=== PATIENT | female | born 1965 | race Two or more races ===

== ENCOUNTER 2022-07-26 11:23 | Emergency (ER) | payer OTHER ==
[~2022-07-26] VITALS: Ht 160 cm; Wt 68.0 kg
== END 2022-07-26 15:28 | disposition home or self-care (01) ==
LOC: ER 11:23
DX: S49.91XA Unspecified injury of right shoulder and upper arm, initial encounter (principal); W01.0XXA Fall on same level from slipping, tripping and stumbling without subsequent striking against object, initial encounter; Y93.01 Activity, walking, marching and hiking; Y92.831 Amusement park as the place of occurrence of the external cause